=== PATIENT | male | born 1955 | race Caucasian/White ===

== ENCOUNTER 2020-03-04 16:59 | Inpatient (IN) | payer SELFPAY ==
[~2020-03-04] VITALS: Ht 177.8 cm; Wt 91.0 kg
[2020-03-04 17:26] VITALS: BP 118/69; PULSE 91; TEMP 98.3
--- NOTE | 2020-03-04 17:40 | NUR ---
Patient here from [place]. Alert and oriented x 3. Oriented to room. No further needs at this time.
--- NOTE | 2020-03-04 18:45 | NUR ---
Contacted Dr. Stewart, patient requesting food prior to being NPO after midnight. New order for CL entered.
[2020-03-04 19:04] VITALS: BP 116/76; PULSE 89; TEMP 98.8
--- NOTE | 2020-03-04 19:52 | NUR ---
Reported off to night stocker. IV initiated x 1 attempt to right forarm. Antibiotics infusing per orders.
[2020-03-04] MEDS ORDERED: PRILOTC (20:42)
[2020-03-04 23:15] VITALS: BP 135/79; PULSE 82; TEMP 99.1
[2020-03-05] VITALS (13 sets, daily range): BP systolic 116–133; BP diastolic 63–83; PULSE 64–78; TEMP 97.7–99.2
--- NOTE | 2020-03-05 05:04 | NUR ---
patient had a pretty uneventful night. he reported pain right around a little after midnight. pain medication was given to him. since his last dose of pain medication he has not reported any pain and has not requested any. patient is scheduled for surgery today. he has been npo since midnight. patient is IND in the room and is able to take himself to the bathroom if and when he has to go. denies any other needs at this time, will report off to day shift upon their arrival
[2020-03-05 06:11] LABS: BASO % 0.4 % (0.0-2.0); EOS # 0.1 (0.0-0.7); EOS % 1.1 % (0-4.0); GRAN # 7.2 (1.4-6.5); GRAN % 74.9 % (42.2-75.2); HEMATOCRIT 37.9 % (42.0-52.0); HEMOGLOBIN 12.7 g/dl (13.5-18.0); LYMPH # 1.2 (1.2-3.4); LYMPH % 12.9 % (20.0-51.0); MEAN CELL VOLUME 91 fl (80.0-100.0); MEAN CORPUSCULAR HEMOGLOBIN 31 pg (27.0-31.0); MEAN CORPUSCULAR HGB CONC 34 g/dl (33.0-37.0); MONO % 10.3 % (1.7-9.3); PLATELET COUNT 213 K/mm3 (130-400); RED BLOOD COUNT 4.15 M/mm3 (4.20-5.60); REDCELL DISTRIBUTION WIDTH-CV 12.9 % (11.5-14.5)
[2020-03-05 06:21] LABS: ALBUMIN 3.5 gm/dL (3.5-5.0); BILIRUBIN,TOTAL 1.9 mg/dL (0.0-1.0); CREATININE, serum 0.89 (0.66-1.25); POTASSIUM 4.3 mmol/L (3.4-5.0); TOTAL PROTEIN 7.2 gm/dL (6.4-8.2)
[2020-03-05 06:25] LABS: INR 1.3 (0.8-3.0); PROTHROMBIN TIME 15.4 SECONDS (9.7-12.8)
--- NOTE | 2020-03-05 07:39 | NUR ---
Lying in bed with eyes open. Denies pain at this time. Reviewed consent with the patient. Questions answered. Patient signs consent. Denies needs at this time.
--- NOTE | 2020-03-05 11:05 | NUR ---
Patient performs surgical scrub sponge bath. Connected to LR via gravity tubing. Denies pain or any needs at this time.
--- NOTE | 2020-03-05 12:15 | NUR ---
Patient to surgery via bed by surgical staff.
--- NOTE | 2020-03-05 13:33 | NUR ---
Plans to return home with [facility] his . is set to transport. Patient denies having any DME. PCP is Dr Lucio. RX obtained from [facility]. Denies the use or need for [facility] services. Patient has been made aware of president financial institution due to self-pay status. Patient denies having any needs. No care concerns nothing follows.
--- NOTE | 2020-03-05 15:39 | NUR ---
Patient back to room via bed from surgery. Denies pain. Oxygen on at 2L/NC. Lap sites x3 with swiftset inplace, no redness/drainage/edema noted. BERNARD drain to right lower abd with small amount of bloody discharge noted in bulb. Bulb is compressed. Patient denies further needs at this time.
--- NOTE | 2020-03-05 18:31 | NUR ---
Sitting up in bed with eyes open talking on cell phone and watching TV. Denies pain. Says that he feels more awake. Oxygen removed at this time. Patient denies any additional needs.
--- NOTE | 2020-03-05 20:00 | NUR ---
Pt. laying in bed at this time. Pt. is A&OX3, assessment complete. IV to rt. forearm patent, IV fluids infusing per orders. Pt. denies pain at this time. Abd. lap sites X3 CDI. BERNARD drain to rt. abd. CDI, minimal bloody drainage noted to BERNARD at this time. Pt. denies further needs, call light within reach.
[2020-03-06 04:27] VITALS: BP 122/82; PULSE 62; TEMP 98.8
[2020-03-06 06:41] LABS: BASO % 0.1 % (0.0-2.0); GRAN # 14.4 (1.4-6.5); GRAN % 89.5 % (42.2-75.2); HEMOGLOBIN 11.9 g/dl (13.5-18.0); LYMPH # 0.6 (1.2-3.4); MEAN CELL VOLUME 92 fl (80.0-100.0); MEAN CORPUSCULAR HEMOGLOBIN 31 pg (27.0-31.0); MEAN CORPUSCULAR HGB CONC 34 g/dl (33.0-37.0); MEAN PLATELET VOLUME 10.1 fl (7.4-10.4); MONO # 0.9 (0.1-0.6); MONO % 5.7 % (1.7-9.3); PLATELET COUNT 234 K/mm3 (130-400); RED BLOOD COUNT 3.81 M/mm3 (4.20-5.60)
[2020-03-06 06:48] LABS: HEMATOCRIT 35.1 % (42.0-52.0)
[2020-03-06 06:51] LABS: ALBUMIN 3.2 gm/dL (3.5-5.0); BILIRUBIN,TOTAL 0.8 mg/dL (0.0-1.0); CREATININE, serum 0.82 (0.66-1.25); POTASSIUM 4.4 mmol/L (3.4-5.0); TOTAL PROTEIN 6.8 gm/dL (6.4-8.2)
[2020-03-06 06:52] LABS: CALCIUM 8.7 mg/dL (8.4-10.2)
[2020-03-06 08:00] VITALS: BP 143/84; PULSE 76; TEMP 97.9
--- NOTE | 2020-03-06 08:11 | NUR ---
Lying in bed with eyes open. Denies pain. Abd lap sites x3 with edges well approximated, no redness/swelling/discharge noted. BERNARD drain to right lower abd with dressing CDI. Bulb compressed with small amount of bloody drainage in bulb. Denies passing gas. Encouraged patient to ambulate in room and halls. Patient denies further needs at this time.
[2020-03-06 12:11] VITALS: BP 104/65; PULSE 67; TEMP 98.1
[2020-03-06] MEDS ORDERED: AMOXICILLIN 8751 TAB PO (12:20)
[2020-03-06] MEDS ORDERED: NORCO 325 MG-51 TAB PO (12:20)
[2020-03-06] MEDS ORDERED: MOTRIN 600600 MG/TAB PO (12:21)
[2020-03-06 15:35] VITALS: BP 115/69; PULSE 70; TEMP 97.8
--- NOTE | 2020-03-06 17:41 | NUR ---
Sitting up in bed. Patient had showered and needs new dressing around drain. Drainage noted in BERNARD drain. Attempt to empty BERNARD drain and large clot, approximately 2 inches by 2 inches in size noted in bulb. Bulb was emptied approximately one hour ago when the patient was getting into the shower and no clots noted in drainage. Asked Natasha, charge nurse, to look at BERNARD drain. Dr. Stewart contacted and updated. Dr. Stewart says that we may change BERNARD bulb and to keep an eye on what is draining and if continues to let him know. Contacted pump house technician, Jael, and requested new bulb for BERNARD drain. She will bring as soon as she is able to.
--- NOTE | 2020-03-06 18:31 | NUR ---
Sitting up in bed in room. BERNARD drain emptied and compressed as much as possible with the clot in the bulb. Explained that we are waiting on the new bulb and once it is available we will get it changed. Patient denies pain. Says that he has been able to pass some gas this evening. Patient denies further needs at this time.
[2020-03-06 20:24] VITALS: BP 131/82; PULSE 85; TEMP 98.4
--- NOTE | 2020-03-06 21:00 | NUR ---
Initial shift assessment done- denies pain at this time- understands will be NPO after MN for ERCP tomorrow- Lap sites x3 to abd- clean dry, BERNARD bulb changed at this time as per order{ did have large clot in the Bulb} Up walking in room- no requests.
[2020-03-07 00:51] VITALS: BP 120/73; PULSE 73; TEMP 98.7
[2020-03-07 04:26] VITALS: BP 124/77; PULSE 79; TEMP 98.1
--- NOTE | 2020-03-07 07:38 | NUR ---
Slept fair- Up on own to bathroom, voiding well, only scant out BERNARD during the night- NPO for ERCP
[2020-03-07 08:11] VITALS: BP 131/86; PULSE 68; TEMP 98
--- NOTE | 2020-03-07 08:30 | NUR ---
Patient in bed resting. Alert and oriented x 3. Assessment complete. Lap sites x3 with edges well approximated. BERNARD to right quadrant with serosanguinous drainage present. INT to right forarm. Denies pain at this time. Denies further needs at this time.
--- NOTE | 2020-03-07 10:52 | NUR ---
Patient up independent in room. Denies needs at this time.
--- NOTE | 2020-03-07 10:54 | NUR ---
Patient ambulating independently in [place]
--- NOTE | 2020-03-07 11:26 | NUR ---
First visit from the citizenship instructor. No needs right now.
--- NOTE | 2020-03-07 12:00 | NUR ---
Patient down for ERCP
--- NOTE | 2020-03-07 13:34 | NUR ---
Patient up from ERCP, alert and oriented. Ambulated to bed, steady gait.
[2020-03-07 16:48] VITALS: BP 139/84; PULSE 67; TEMP 98
--- NOTE | 2020-03-07 19:28 | NUR ---
Discharge education provided to patient. Educated on signs and symptoms of infection. Educated on BERNARD care and recording out put. Antibiotic infusing per order. Patient has appointment scheduled for BERNARD removal with Dr. Stewart. All questions answered. Denies further needs at this time. Reported off to cook night.
--- NOTE | 2020-03-07 19:35 | NUR ---
IV antibiotic completed- Getting dressed states is waiting downstairs-- IV dc,d- bandaid applied- pt states he,s feeling good tonight- ready to go home!
--- NOTE | 2020-03-07 19:45 | NUR ---
Discharged home per wheelchair by this nurse- was waiting in ER entrance- no questions from either patient or - pt with all belongings from room-
== END 2020-03-07 19:50 | disposition home or self-care (01) | DRG 419 ==
LOC: SURG 16:59
PROVIDERS: ADMIT Surgery
PROC: BF131ZZ Fluoroscopy of Gallbladder and Bile Ducts using Low Osmolar Contrast (ICD-10-PCS; 2020-03-05)
PROC: 0FT44ZZ Resection of Gallbladder, Percutaneous Endoscopic Approach (ICD-10-PCS; principal; 2020-03-05 12:00)
DX: K80.46 Calculus of bile duct with acute and chronic cholecystitis without obstruction (principal)
CPT/HCPCS: A9284; C1769; J1100; J1170; J1610; J1885; J2405; J2543; J2704; J3010; J7030; J7120; Q9967